=== PATIENT | female | born 2000 | race Caucasian/White ===

== ENCOUNTER 2020-04-14 12:20 | Emergency (ER) | payer OTHER, SELFPAY ==
[2020-04-14 12:20] VITALS: BP 140/72; PULSE 83; RESP 16; TEMP 37; O2SAT 100
[2020-04-14 12:56] LABS: Add Urine Microscopic? NO; Appearance Urine Clear (Clear); Bilirubin Urine Negative (Negative); Blood Urine Negative (Negative); Color Urine Yellow (Yellow); Glucose Urine UA Negative (Negative); Ketones Urine Negative (Negative); Leukocyte Esterase Ur Negative (Negative); Nitrate Urine Negative (Negative); Protein Urine Negative (Negative); Urobilinogen Urine 0.2 mg/dL (0.2-1.0)
[2020-04-14 12:59] LABS: Pregnancy On Board Control Positive; Urine Pregnancy Test Negative
--- NOTE | 2020-04-14 13:05 | ED.FEMALEGU ---
HPI - Female Genitourinary General Chief complaint: OB/Uterine Contractions Stated complaint: symptoms Time Seen by Provider: 04/14/20 12:50 Source: patient Mode of arrival: ambulatory Limitations: no limitations History of Present Illness HPI Narrative: Patient comes in stating she had cramps and some spotting on Monday. She did a home test, and this was positive. She comes in wanting to have a test. She states she had similar symptoms when she was the last time. She is worried she is again. Her symptoms were mild and only lasted for a little while, an hour or so on Monday. Spotting was on Monday. Cramping was in low abdomen in the middle in the area above her bladder and was mild in nature. Nothing seemed to precipitate these symptoms. She has had no symptoms other than these. And she has had no return of these symptoms since Monday. She has not taken any medicines. MD elicited complaint: other (denies dysuria, frequency, urgency. She denies any vaginal discharge, or discomfort. ) Sexual activity: Yes (no new partners, she does not know when her last menstral period was.) Patient : No Related Data Home Medications Medication Instructions Recorded Confirmed escitalopram oxalate 20 mg PO DAILY 04/14/20 04/14/20 levonorgestrel-ethinyl estrad 1 tablet PO DAILY 04/14/20 04/14/20 [Aviane] Allergies Allergy/AdvReac Type Severity Reaction Status Date / Time ceftriaxone [From Rocephin] Allergy Unknown Verified 04/14/20 12:52 montelukast [From Singulair] Allergy Unknown Verified 04/14/20 12:52 Review of Systems Constitutional: Constitutional: Reports as per HPI Eyes: Eyes: Reports no additional eye complaints ENT: Reports system reviewed and no additional complaints, except as documented Cardiovascular: Cardiovascular: Reports no additional cardiovascular complaints Respiratory: Respiratory: Reports no additional respiratory complaints Gastrointestinal: Gastrointestinal: Reports no additional gastrointestinal complaints Comments: no loose stools Genitourinary: Genitourinary: Reports no additional female genitourinary complaints Comments: denies any discomfort or vaginal discharge Musculoskeletal: Musculoskeletal: Reports no additional musculoskeletal complaints Integumentary/Breasts: Skin/Breast: Reports system reviewed and no additional complaints, except as docu Neurologic: Reports system reviewed and no additional complaints, except as documented Psychiatric: Psychiatric: Reports no additional psychiatric complaints Endocrine: Endocrine: Reports no additional endocrine complaints Hematologic/Lymphatic: Hematologic/Lymphatic: Reports no additional hematologic/lymphatic complaints Allergic/Immunologic: Allergic/Immunologic: Reports no additional allergic/immunologic complaints [facility] Past Medical History Medical History Anxiety Depression Surgical History Surgical History No significant past surgical history Family History Family History Mother No problems noted. Father Diabetes mellitus Social History Social History Smoking status: Current some day smoker Tobacco type: cigarettes Additional smoking assessment comments: smokes at times Alcohol use details: has alcohol at times Exam Const: General: no acute distress HENMT: Head: normal to inspection Face and sinus: normal facial exam Eyes: Conjunctivae: conjunctivae normal Chest: Chest palpation & inspection: normal inspection of the chest Resp: Effort & Inspection: normal respiratory effort Auscultation: clear to auscultation bilaterally Cardio: Rate: regular rate Rhythm: regular rhythm GI: GI Palp: Yes Soft to palpation Auscultation: normal bowel soun
[2020-04-14 13:14] VITALS: PULSE 80; RESP 18; O2SAT 100
== END 2020-04-14 13:16 | disposition home or self-care (01) ==
PROVIDERS: Emergency Provider Emergency Medicine; PCP Family Medicine
DX: N92.0 Excessive and frequent menstruation with regular cycle (principal)
CPT/HCPCS: 81003; 81025; 99282; 99283

== ENCOUNTER 2020-06-04 11:34 | Emergency (ER) | payer OTHER, SELFPAY ==
--- NOTE | ~2020-06-04 | US_ITS ---
EXAMINATION: US OB transvaginal EXAM DATE: 06/04/2020 12:46 INDICATION: Pelvic pain. . 1st trimester. TECHNIQUE: Pelvic obstetrical transabdominal sonogram was performed by a technologist. There are mu ltiple grayscale and Doppler images available for interpretation. There are no earlier studies of th is gestation for comparison. FINDINGS: Uterus measures 7.7 x 5.6 x 7.3 cm. There is intrauterine gestation sac. pole with heart rate confirmed at 130 beats per minute. The 8 mm crown-rump length corresponds to estimated ge stational age by ultrasound of 6 weeks 5 days. Yolk sac is identified. There is small subchorionic hemorrhage measuring 8 x 14 x 18 mm. Ovaries are morphologically normal with the corpus luteal cyst likely in the left ovary. IMPRESSION: Live intrauterine gestation with small subchorionic hemorrhage. Reviewed, dictated and finalized at location B. LOAD TRUCK DRIVER
[2020-06-04 12:03] LABS: Add Urine Microscopic? YES; Appearance Urine Clear (Clear); Bilirubin Urine 1+ (Negative); Blood Urine Negative (Negative); Color Urine Amber (Yellow); Glucose Urine UA Negative (Negative); Ketones Urine Trace (Negative); Leukocyte Esterase Ur Negative (Negative); Nitrate Urine Negative (Negative); Protein Urine Trace (Negative); Specific Grav Ur >= 1.030 (1.010-1.020)
[2020-06-04 12:03] LABS: Basophils Absolute Auto 0.05 K/mm3 (0.00-0.10); Eosinophils Absolute Auto 0.17 K/mm3 (0.02-0.50); Eosinophils Percent Auto 3.3 % (1.0-6.0); Hematocrit 38.2 % (35.0-49.0); Hemoglobin 13.2 g/dL (12.0-15.0); Immature Granulocyte Absolute 0.01 K/mm3 (0.00-0.00); Immature Granulocyte Percent A 0.2 % (0.0-0.0); Lymphocytes Absolute Auto 1.46 K/mm3 (1.10-4.50); Lymphocytes Percent Auto 27.9 % (18.0-42.0); Mean Corpuscular HGB Conc 34.6 g/dL (32.0-36.0); Mean Corpuscular Hemoglobin 29.8 pg (27.0-31.0); Mean Corpuscular Volume 86.2 fL (78.0-102.0); Mean Platelet Volume 11.4 fl (9.2-11.8); Monocytes Absolute Auto 0.41 K/mm3 (0.10-0.90); Monocytes Percent Auto 7.8 % (2.0-11.0); Neutrophils Absolute Auto 3.1 K/mm3 (1.7-7.2); Neutrophils Percent Auto 59.8 % (50.0-70.0); Platelet Count Result 246 K/mm3 (150-420); Red Blood Count 4.43 M/mm3 (4.20-5.40); Red Cell Distribution Width 12.3 % (11.6-14.4); White Blood Count 5.2 K/mm3 (4.8-10.8)
[2020-06-04 12:10] VITALS: BP 123/77; PULSE 76; RESP 16; TEMP 36.5; O2SAT 99
[2020-06-04 12:19] LABS: Bacteria Urine 4+ /hpf; Mucus Urine Moderate /lpf; RBC Urine 0-2 /hpf (0-2); Squamous Epithelial Cell Urine Few /hpf (Few); WBC Urine 0-3 /hpf (0-3)
[2020-06-04 12:23] LABS: INR 0.9; Partial Thromboplastin Time 26.3 SEC (23.90-30.70); Prothrombin Time 10.3 Seconds (9.50-12.10)
[2020-06-04 12:26] LABS: Anion Gap 10 mmol/L (8-16); Aspartate Amino Transferase 13 U/L (15-37); Bilirubin,Total 0.5 mg/dL (0.00-1.00); Blood Urea Nitrogen 8 mg/dL (7-18); Calcium 8.9 mg/dL (8.5-10.1); Carbon Dioxide 23 mmol/L (21-32); Chloride 103 mmol/L (98-108); Estimated Glomerular Filt Rate > 60; Glucose 86 mg/dL (70-99); Osmolality Calculated 279 mOsm/kg (285-295); Potassium 3.4 mmol/L (3.5-5.1); Sodium 136 mmol/L (136-145)
[2020-06-04 12:27] LABS: Alanine Aminotransferase 11 U/L (14-59); Albumin Level 3.8 g/dL (3.4-5.0); Alkaline Phosphatase 61 U/L (46-116); Total Protein 7.3 g/dL (6.4-8.2)
--- NOTE | 2020-06-04 13:08 | ED.GENADULT ---
HPI - General Adult General Chief complaint: Fall Stated complaint: fell down stairs Source: patient Mode of arrival: ambulatory Limitations: no limitations History of Present Illness HPI narrative: this is a 19-year-old patient with a fall that occurred earlier today down flight of stairs moves all her extremities upper and lower extremities with no head injury no neck pain or stiffness no hematomas the patient was concerned that she had some mild bleeding from the vaginal area and some abdominal discomfort. The patient abdomen is nontender with no nausea vomiting no shortness of breath. Onset (ago): hour(s) Location: pelvis Radiation: abdomen Severity: mild Severity scale (1-10): 2 Quality: dull Pain Consistency: now resolved Relieving factors: none Exacerbating factors: none Associated symptoms: denies other symptoms Related Data Home Medications Medication Instructions Recorded Confirmed escitalopram oxalate 20 mg PO DAILY 04/14/20 04/14/20 levonorgestrel-ethinyl estrad 1 tablet PO DAILY 04/14/20 04/14/20 [Aviane] Allergies Allergy/AdvReac Type Severity Reaction Status Date / Time ceftriaxone [From Rocephin] Allergy Unknown Verified 04/14/20 12:52 montelukast [From Singulair] Allergy Unknown Verified 04/14/20 12:52 Review of Systems Review of Systems: All systems reviewed & are unremarkable except as noted in HPI and below PMFSH Past Medical History Medical History Anxiety Depression Surgical History Surgical History No significant past surgical history Family History Family History Mother No problems noted. Father Diabetes mellitus Social History Social History Smoking status: Current some day smoker Tobacco type: cigarettes Additional smoking assessment comments: smokes at times Exam Const: General: no acute distress and alert Orientation/consciousness: patient oriented x3 HENMT: Head: normal to inspection Eyes: Conjunctivae: conjunctivae normal Pupils: Equal, round and reactive pupils present EOM: EOMs intact bilaterally Neck: Neck: normal visual inspection, no lymphadenopathy and no meningeal signs Chest: Chest palpation & inspection: normal inspection of the chest Resp: Effort & Inspection: normal respiratory effort Auscultation: clear to auscultation bilaterally Cardio: Rate: regular rate Rhythm: regular rhythm GI: GI Palp: Yes Soft to palpation Percussion: Yes normal to percussion Auscultation: normal bowel sounds : General: Yes no CVA tenderness Urinary Catheter: Urinary Catheter: patent and draining Skin: General skin exam: normal color Rashes: no rashes Neuro: General: patient oriented x3, moves all extremities, no meningeal signs and no focal motor deficits Extrem: General: normal to inspection and no pedal edema Psych: Mental Status: mental status grossly normal Course Course Emergency Course: Reassessment of patient currently no vaginal bleeding abdomen is soft and currently nontender reviewed ultrasound and lab work with patient and told patient that she is 6 weeks and 5 days with some heart rate of 130, with a small subchorionic hematoma. The patient does have a OB follow-up in the morning and advised her to keep that follow-up or return to our ER if symptoms persist or worsen. Medical Decision Making Lab Data Result diagrams: 06/04/20 11:58 06/04/20 11:58 Labs: Lab Results 06/04/20 06/04/20 06/04/20 Range/Units 11:48 11:48 11:58 WBC (4.8-10.8) K/mm3 RBC (4.20-5.40) M/mm3 Hgb (12.0-15.0) g/dL Hct (35.0-49.0) % MCV (78.0-102.0) fL MCH (27.0-31.0) pg MCHC (32.0-36.0) g/dL RDW (11.6-14.4) % Plt Count (150-420)
[2020-06-04 13:19] VITALS: RESP 16
== END 2020-06-04 13:30 | disposition home or self-care (01) ==
PROVIDERS: Emergency Provider Emergency Medicine; PCP Family Medicine
DX: Z34.91 Encounter for supervision of normal pregnancy, unspecified, first trimester (principal); W19.XXXA Unspecified fall, initial encounter
CPT/HCPCS: 36415; 76817; 80053; 81001; 84702; 85025; 85610; 85730; 99282; 99284

== ENCOUNTER 2020-08-18 14:57 | Observation (INO) | payer OTHER, SELFPAY ==
[2020-08-18 15:13] VITALS: BP 116/70; PULSE 82
--- NOTE | 2020-08-18 15:30 | PC.NURSE ---
Pt presented to unit due to fall that occurred on 08/16/20. She states that she slipped in mud and left on her left flank, hip, and arm. On 08/17 pt reports that she presented to [facility] [place] where the RN states that she couldn't find a FHR and the doctor placed the doppler on rt side of pt umbilicus for a quick second and reported that he heard an FHR of 175bpm - pt states that she didn't hear a FHR at that time. Pt called office this morning and was told to come to the unit to be monitored. At this time, pt was doppled - 155bpm. Pt reports mild cramping 4/10 pain and no bloody discharge. Has been taking tylenol for cramping. Will continue to monitor.
[2020-08-18 15:43] VITALS: BMI 26.7
--- NOTE | 2020-08-18 16:05 | PC.NURSE ---
Dr Jerome returned call for pt orders. Pt ok to d/c home.
--- NOTE | 2020-08-18 16:22 | PC.NURSE ---
Pt given d/c instructions - verbalized understand. D/c ambulatory with self, with cramping pain 2/10, denies vaginal bleeding.
--- NOTE | 2020-08-20 08:06 | PM.OBTRLD ---
OB - Triage/Final Diagnosis Visit Information Comments/Additional reasons for admission: I have assessed the risk for this patient, Mae López, and determined that she would benefit from observation care. Final Diagnosis (1) Fall: Code(s): W19.XXXA - Unspecified fall, initial encounter Status: Acute
== END 2020-08-18 16:20 | disposition home or self-care (01) ==
PROVIDERS: Admitting Provider Obstetrics & Gynecology; PCP Family Medicine; Visit Provider Obstetrics & Gynecology
DX: Z04.3 Encounter for examination and observation following other accident (principal); O26.90 Pregnancy related conditions, unspecified, unspecified trimester; W19.XXXA Unspecified fall, initial encounter; Z3A.00 Weeks of gestation of pregnancy not specified
CPT/HCPCS: G0378; G0379

== ENCOUNTER 2020-09-29 09:33 | Observation (INO) | payer OTHER, SELFPAY ==
--- NOTE | 2020-09-29 09:33 | OBADM ---
This patient, Mae López, admitted to the OB room OB Post 116 for observation. Patient/family oriented to hospital policies and general routines including ID bracelet, bed and alarms, visiting hours, pain management, procedures, bathroom and other care routines, personal items, smoking policy, room service/diet, and visiting hours. Patient/Family are encouraged to report perceived risks to care and to ask questions if they do not understand what they are told or what they should do.
[2020-09-29 09:54] VITALS: BP 106/60; PULSE 76
[2020-09-29 10:00] VITALS: BP 104/60; PULSE 80
[2020-09-29 10:18] VITALS: BMI 27.2
[2020-09-29 10:27] LABS: Add Urine Microscopic? YES; Amorphous Sediment Urine Few; Appearance Urine Cloudy (Clear); Bacteria Urine 2+ /hpf; Bilirubin Urine Negative (Negative); Blood Urine Negative (Negative); Color Urine Amber (Yellow); Glucose Urine UA Negative (Negative); Ketones Urine Negative (Negative); Leukocyte Esterase Ur Trace LEU/UL (NEGATIVE); Mucus Urine Heavy /lpf; Nitrate Urine Negative (Negative); Protein Urine 2+ mg/dL (Negative); Specific Grav Ur 1.026 (1.001-1.035); Squamous Epithelial Cell Urine Few /hpf (Few)
[2020-09-29 10:30] VITALS: BP 82/54; PULSE 69
--- NOTE | 2020-10-01 16:24 | PM.OBTRLD ---
OB - Triage/Final Diagnosis Visit Information Comments/Additional reasons for admission: I have assessed the risk for this patient, Mae López, and determined that she would benefit from observation care. Evaluation Laboratory results: Laboratory Tests 09/29/20 10:11 Urine Color [place] Urine Appearance Cloudy H Urine pH 6.0 Ur Specific [place] 1.026 Urine Protein 2+ H Urine Glucose (UA) Negative Urine Ketones Negative Ur Blood (Man) Negative Urine Nitrate Negative Urine Bilirubin Negative Urine Urobilinogen 4.0 H Ur Leukocyte Esterase Trace H Urine RBC 3-5 H Urine WBC 4-6 H Ur Squamous Epith Cells Few Amorphous Sediment Few H Urine Bacteria 2+ H Urine Mucus Heavy H Final Diagnosis (1) Abdominal pain affecting : Code(s): O26.899 - Other specified related conditions, unspecified trimester; R10.9 - Unspecified abdominal pain Status: Acute
== END 2020-09-29 11:30 | disposition home or self-care (01) ==
PROVIDERS: Admitting Provider Obstetrics & Gynecology; PCP Family Medicine; Visit Provider Obstetrics & Gynecology
DX: O26.899 Other specified pregnancy related conditions, unspecified trimester (principal); R10.9 Unspecified abdominal pain; Z3A.00 Weeks of gestation of pregnancy not specified
CPT/HCPCS: 81001; 87086; 87088; G0378; G0379

== ENCOUNTER 2021-01-16 06:18 | Inpatient (IN) | payer OTHER, SELFPAY ==
[2021-01-16] VITALS (55 sets, daily range): BP systolic 100–132; BP diastolic 58–98; PULSE 55–152; RESP 16–18; TEMP 35.8–36.4; O2SAT 80–100; BMI 30.4
[2021-01-16] MEDS: LACTATED RINGERS 1,000 ML 125 ML IV CONT ×2 (07:16→08:04)
[2021-01-16] MEDS: ONDANSETRON INJ 4 MG/2 ML VIAL IV PUSH (07:16)
[2021-01-16] MEDS: OXYTOCIN 30 UNITS/NS 500 ML 30 UNITS/500 ML BAG IV CONT (07:17)
[2021-01-16 07:25] LABS: Basophils Percent Auto 0.6 % (0.2-1.2); Eosinophils Absolute Auto 0.1 K/mm3 (0-0.3); Eosinophils Percent Auto 1.2 % (0-4.4); Hemoglobin 10.6 g/dL (12.0-15.0); Immature Granulocyte Absolute 0.02 K/mm3 (0.00-0.031); Immature Granulocyte Percent A 0.3 % (0-0.5); Lymphocytes Absolute Auto 2.04 K/mm3 (0.9-3.2); Mean Corpuscular HGB Conc 32.1 g/dl (32-36); Mean Corpuscular Hemoglobin 26.4 pg (26-34); Mean Corpuscular Volume 82.3 fl (80-100); Mean Platelet Volume 11.4 fl (7.4-10.4); Monocytes Absolute Auto 0.6 K/mm3 (0.1-0.6); Monocytes Percent Auto 8.3 % (2.6-8.5); Neutrophils Absolute Auto 3.9 K/mm3 (1.3-6.7); Neutrophils Percent Auto 58.6 % (45.5-73.1); Platelet Count Result 245 k/mm3 (150-375); Red Blood Count 4.01 M/mm3 (4.2-5.4); Red Cell Distribution Width 13.4 % (11.5-14.5); White Blood Count 6.6 K/mm3 (4.5-10.0)
--- NOTE | 2021-01-16 10:35 | WPDHPUPDATE1 ---
History and Physical Update Update Date/Time: 01/16/21 10:35 History and Physical has been reviewed, including an updated exam of the patient. There are NO changes in the patient's condition. Risks, benefits, and alternatives have been discussed and questions answered. Patient agrees to proceed with procedure.
--- NOTE | 2021-01-16 10:35 | WPDOBADMIT ---
Obstetrics - Admit Note Admission Note: record reviewed. No pertinent additions to the history and/or any subsequent changes in the physical findings that are not consistent with the expected course of the were found. Additions to the history and/or subsequent changes in the physical findings follow. None.
--- NOTE | 2021-01-16 10:35 | PM.OBPRVD ---
OB - Delivery Note Procedure Route of delivery: Episiotomy description: None Laceration Description: Vaginal - 2nd Degree Delivery repair: chromic Specimen: No Quantitative Blood Loss (ml): 400 Anesthesia type: Epidural Disposition: floor Narrative: Patient prepped and draped in usual manner for this procedure. Maternal expulsive efforts readily delivered vertex followed by the rest of baby with a nuchal cord reduced prior to delivery of the baby's body. Cord was clamped and cut placenta delivered spontaneously. Uterus was well contracted. Cervix vagina vulva were inspected second-degree laceration was noted and repaired using 2 0 chromic to approximate the vaginal tissue deep tissue and a subcuticular layer to approximate skin edges. Again uterus was well contracted no significant bleeding at this point seizure was considered terminated with immediate postoperative condition mother baby both excellent. [place] Baby Weeks of gestation at delivery: 39 gender: Male Weight (pounds): 8 Weight (ounces): 5 score one minute: 8 score five minutes: 9
[2021-01-16] MEDS: OXYTOCIN 30 UNITS/NS 500 ML 30 UNITS/500 ML BAG 125 UNITS IV CONT (10:41)
[2021-01-16] MEDS: WITCH HAZEL 40 PADS 1 PAD TOPICAL (12:39)
[2021-01-16] MEDS: BENZOCAINE 20% AER SPR (*SP) 56 GM CAN 1 SPRAY TOPICAL (12:39)
--- NOTE | 2021-01-16 13:03 | PC.NURSE ---
Patient transferred to post room #285 per wheelchair from labor and delivery. Support person present. Oriented to unit, room, information board, rooming in, admission packet and security measures. Patient verbalizes understanding.
[2021-01-16] MEDS: IBUPROFEN 600 MG TABLET PO (23:53)
[2021-01-17 04:00] VITALS: BP 99/56; PULSE 50; RESP 16; TEMP 36.1; O2SAT 99
[2021-01-17 04:13] LABS: Hematocrit 24.2 % (37.0-47.0); Hemoglobin 7.8 g/dL (12.0-15.0)
--- NOTE | 2021-01-17 07:53 | WPDANLDPN2 ---
Anes-Prog Note L&D Date/Time: 01/17/21 07:53 Comfortable throughout: labor and delivery Neuraxial method: epidural Epidural/Spinal procedure site: clean & non-tender Neuro status: Neuro function grossly intact. Cardiovascular status: normal Respiratory status: normal Airway patency: baseline Mental status: baseline Post-Op hydration status: normal Vital Signs: Last Vital Signs Temp 97.0 F L 01/17/21 04:00 Pulse 50 L 01/17/21 04:00 Resp 16 01/17/21 04:00 BP 99/56 L 01/17/21 04:00 Pulse Ox 99 01/17/21 04:00 Pain score (VAS): 2 I/O: Intake & Output 01/16/21 01/16/21 01/17/21 15:59 23:59 07:59 Intake Total 1500 Output Total 675 Balance 825 Post-procedural complaints: none Patient feedback: Patient satisfied with anesthetic care.
[2021-01-17 08:10] VITALS: BP 94/59; PULSE 59; RESP 16; TEMP 36.3
[2021-01-17] MEDS: POLYSACCHARIDE IRON COMPLEX 150 MG CAPSULE PO (08:10)
[2021-01-17] MEDS: DOCUSATE SODIUM 100 MG CAPSULE PO (08:10)
[2021-01-17] MEDS: MULTIVIT/MIN/PREN/FOL AC/IRON TABLET 1 TAB PO (08:10)
--- NOTE | 2021-01-17 08:10 | PC.NURSE ---
Patient encouraged to viewed the discharge video Mother & Baby Care, The First Two Weeks . Patient was given the opportunity and encouraged to ask questions. Patient verbalized understanding of information shared and has been given the mother/baby guide for home reference.
--- NOTE | 2021-01-17 10:07 | PM.OBDSVD ---
DS: Admitting Diagnosis Admitting Diagnosis OB - DS: Summary OB Procedures : None OB Procedures Intrapartum: Spontaneous Vag Delivery OB Procedures: : None Time Spent with Patient Time attestation: Total time spent providing and/or coordinating discharge services: DS: Data Data Completed and Pending Labs on day of discharge: Labs from last 24 hours 01/17/21 04:06 Hgb 7.8 L Hct 24.2 L Discharge Plan Discharge Discharging Clinician: Toby Perkins Patient Disposition: Home, Self-Care Activity: as tolerated Diet: as tolerated Patient Instructions: Antibiotic Form Stand Alone Forms: General Discharge Information Follow-up/Referrals: Toby Perkins MD [Physician] - 3 Weeks Discharge Medications: New ibuprofen 600 mg Tablet 600 mg PO Q6H PRN (Reason: Cramping) Qty: 30 RF: 0 Continued acetaminophen [Tylenol] 325 mg Tablet 325 mg PO ONCE PRN (Reason: Cramps) RF: 0 iron-vitamin B complex Tablet 1 tablet PO DAILY RF: 0 Classic 28 mg iron- 800 mcg Tablet 1 tablet DAILY RF: 0 Date of admission: 01/16/21 06:18 Primary Care Provider: Lei,Evelio Admitting Provider: Toby Perkins Attending physician on admission: Toby Perkins Condition: Stable
[2021-01-17] MEDS: MEASLES,MUMPS,RUBELLA VACCINE 0.5 ML VIAL SUB-Q (13:43)
[2021-01-18 09:57] LABS: Rapid Plasma Reagin Non-Reactive (NonReactive)
== END 2021-01-17 14:05 | disposition home or self-care (01) | DRG 560 ==
LOC: ANHLDR 06:23 → ANHOB2 13:06
PROVIDERS: Admitting Provider Obstetrics & Gynecology; PCP Family Medicine; Visit Provider Obstetrics & Gynecology
DX: O69.81X0 Labor and delivery complicated by cord around neck, without compression, not applicable or unspecified (principal); Z37.0 Single live birth; Z3A.39 39 weeks gestation of pregnancy; O70.1 Second degree perineal laceration during delivery
CPT/HCPCS: 36415; 85014; 85018; 85025; 86592; 86850; 86900; 86901; 90710; A9270; J2405; J2590; J2795; J7120

== ENCOUNTER 2021-07-12 14:29 | Outpatient (CLI) | payer OTHER, SELFPAY ==
--- NOTE | ~2021-07-12 | US_ITS ---
US abdomen limited INDICATION: Abdominal pain PROCEDURE: Realtime right upper abdominal ultrasound. COMPARISON: No prior studies for comparison. FINDINGS: The pancreas is normal without focal mass or pancreatic ductal dilation. Liver echotexture is normal without focal mass or intrahepatic biliary dilatation. There is normal directional flow i n the portal vein. Gallbladder is contracted limiting evaluation for stones or gallbladder wall thickening. Common bile duct measures 3 mm. No sonographic Rose's sign. IMPRESSION: 1: Normal limited abdominal ultrasound. Limited evaluation of the gallbladder due to contraction. Reviewed, dictated and finalized at location B. HING MACHINE OPERATOR IMPRESSION: 1: Normal limited abdominal ultrasound. Limited evaluation of the gallbladder d ue to contraction.
[2021-07-12 15:18] LABS: Alanine Aminotransferase 23 U/L (14-59); Alkaline Phosphatase 86 U/L (46-116); Anion Gap 8 mmol/L (8-16); Aspartate Amino Transferase 12 U/L (15-37); Bilirubin,Total 0.4 mg/dL (0.00-1.00); Blood Urea Nitrogen 12 mg/dL (7-18); Calcium 9.2 mg/dL (8.5-10.1); Carbon Dioxide 27 mmol/L (21-32); Chloride 102 mmol/L (98-108); Estimated Glomerular Filt Rate > 60; Glucose 91 mg/dL (70-99); Osmolality Calculated 283 mOsm/kg (285-295); Potassium 4.7 mmol/L (3.5-5.1); Sodium 137 mmol/L (136-145); Total Protein 7.3 g/dL (6.4-8.2)
[2021-07-12 15:42] LABS: Thyroid Stimulating Hormone Reflex 3.21 u/IU/mL (0.36-3.74)
== END 2021-07-12 14:30 | disposition home or self-care (01) ==
LOC: CHSLAB 14:31
PROVIDERS: PCP Family Medicine; Visit Provider Family Medicine
DX: R10.9 Unspecified abdominal pain (principal); E11.9 Type 2 diabetes mellitus without complications
CPT/HCPCS: 36415; 76705; 80053; 84443

== ENCOUNTER 2022-04-25 12:19 | Emergency (ER) | payer OTHER, SELFPAY ==
--- NOTE | 2022-04-25 12:29 | ED.NECK ---
HPI - Neck Pain/Injury General Chief Complaint: Back Pain/Injury Stated Complaint: pain starts at neck goes all the way down back Time Seen by Provider: 04/25/22 12:21 Source: patient and RN notes reviewed Mode of arrival: ambulatory Limitations: no limitations History of Present Illness HPI Narrative: Patient states that she woke up Monday morning having neck and back pain. She says that her 5-year-old daughter has had a cough cold recently and then she began having cough yesterday. She states her neck and back is just achy all over. She denies any fever chills. She denies any headache, or nausea. complaint: neck pain Onset (ago): day(s) (2) Place: home Radiation: upper back Severity: severe Quality: dull and aching Duration: constant and progressively worsening Relieving factors: none Exacerbating factors: movement of neck Context: unknown Associated symptoms: other (cough) Treatments prior to arrival: none Related Data Allergies Allergy/AdvReac Type Severity Reaction Status Date / Time ceftriaxone [From Rocephin] Allergy Unknown Verified 04/25/22 12:48 montelukast [From Singulair] Allergy Unknown Verified 04/25/22 12:48 Review of Systems Review of Systems: All systems reviewed & are unremarkable except as noted in HPI and below PMFSH Past Medical History Medical History (Updated 04/25/22 @ 13:27 by Kip Schultz MD) Anxiety Depression Encounter for IUD insertion 03/23/19 Mirena insertion Encounter for IUD removal 03/25/20 Mirena removal Vaginal delivery 08/23/17 Dariusz no complications 01/16/21 Keyshawn no complications Surgical History Surgical History No significant past surgical history Family History Family History Mother No problems noted. Father Diabetes mellitus Social History Social History Smoking status: Never smoker Second hand tobacco smoke exposure: Yes Additional smoking assessment comments: smokes at times Alcohol use details: has alcohol at times Substance use: never Gender identity (if verbalized by the patient): Female Sexual Orientation (if Verbalized by the Patient): Straight or Heterosexual Spiritual care concerns: No Exam Const: General: healthy appearing, no acute distress and alert Nutritional Appearance: well nourished and thin Orientation/consciousness: patient oriented x3 Limitations: no limitations Other: female nurse in room during examination. HENMT: Head: normal to inspection Ears: external ears normal Eyes: Conjunctivae: conjunctivae normal Pupils: Equal, round and reactive pupils present EOM: EOMs intact bilaterally Neck: Neck: normal visual inspection and no lymphadenopathy Resp: Effort & Inspection: normal respiratory effort Auscultation: clear to auscultation bilaterally Cardio: Rate: regular rate Rhythm: regular rhythm GI: GI Palp: Yes Soft to palpation and No Tenderness to palpation present (GI) Auscultation: normal bowel sounds Back/Spine/Pelvis: Cervical Spine: cervical ROM normal Thoracic/Lumbar Spine: thoraco-lumbar ROM normal Skin: General skin exam: normal color Rashes: no rashes Neuro: General: patient oriented x3, moves all extremities and CN's II-XI intact bilaterally Speech: normal speech Gait exam (Neuro): Normal gait present Extrem: General: normal to inspection and no clubbing, cyanosis or edema Psych: Mental Status: mental status grossly normal Affect: normal affect Attitude: cooperative MDM - Neck Pain/Injury MDM Narrative Medical decision making narrative: I considered neck strain with radiation down to the back. However with her symptoms of just aching in her back muscles and a slight cough I investigated for possibility of influenza versus COVID. She tested positive for influenza A. Discharge Plan Discharge Clin
--- NOTE | 2022-04-25 12:35 | PC.NURSE ---
This RN assisted Dr. Schultz during pt's assessment.
[2022-04-25 12:36] VITALS: BP 138/98; PULSE 120; RESP 18; TEMP 36.9; O2SAT 96
--- NOTE | 2022-04-25 12:54 | PC.NURSE ---
Pt had a cough during assessment, states her children at home are ill at this time.
[2022-04-25 13:16] LABS: Influenza A QL RT-PCR Positive (Negative); Influenza B QL RT-PCR Negative (Negative); SARS-CoV-2 RNA PCR Negative (Negative)
[2022-04-25 13:35] VITALS: BP 131/93; PULSE 95; RESP 18; TEMP 37.7; O2SAT 97
== END 2022-04-25 13:39 | disposition home or self-care (01) ==
PROVIDERS: Emergency Provider Emergency Medicine; PCP Nurse Practitioner Family
DX: J11.1 Influenza due to unidentified influenza virus with other respiratory manifestations (principal); Z20.822 Contact with and (suspected) exposure to COVID-19
CPT/HCPCS: 87636; 99283

== ENCOUNTER 2022-08-04 13:42 | Outpatient (CLI) | payer OTHER, SELFPAY ==
[2022-08-04 13:54] LABS: Hematocrit 37.7 % (35.0-49.0); Hemoglobin 12.8 g/dL (12.0-15.0); Mean Corpuscular Hemoglobin 29.4 pg (27.0-31.0); Mean Corpuscular Volume 86.5 fL (78.0-102.0); Mean Platelet Volume 10.8 fl (9.2-11.8); Platelet Count Result 233 K/mm3 (150-420); Red Blood Count 4.36 M/mm3 (4.20-5.40); Red Cell Distribution Width 12.9 % (11.6-14.4); White Blood Count 3.7 K/mm3 (4.8-10.8)
[2022-08-04 14:39] LABS: Band Neutrophils Percent 3 % (0-6); Basophils Absolute Manual 0.07 K/mm3 (0-0.1); Basophils Percent Manual 2 % (0-1); Eosinophils Absolute Manual 0.11 K/mm3 (0.02-0.5); Eosinophils Percent Manual 3 % (1-6); Lymphocytes Absolute Manual 1.44 K/mm3 (1.1-4.5); Lymphocytes Percent Manual 39 % (18-44); Monocytes Absolute Manual 0.25 K/mm3 (0.1-0.90); Monocytes Percent Manual 7 % (3-9); Neutrophils Absolute Manual 1.81 K/mm3 (1.7-7.2); Neutrophils Percent Manual 46 % (46-73); Total Cells Counted 100
[2022-08-04 14:40] LABS: Alanine Aminotransferase 14 U/L (14-59); Albumin Level 4.2 g/dL (3.4-5.0); Alkaline Phosphatase 51 U/L (46-116); Anion Gap 10 mmol/L (8-16); Aspartate Amino Transferase 12 U/L (15-37); Bilirubin,Total 0.4 mg/dL (0.00-1.00); Blood Urea Nitrogen 11 mg/dL (7-18); Calcium 9.1 mg/dL (8.5-10.1); Carbon Dioxide 27 mmol/L (21-32); Chloride 103 mmol/L (98-108); Estimated Glomerular Filt Rate > 60; Free T4 Free Thyroxine 0.96 ng/dL (0.76-1.46); Glucose 79 mg/dL (70-99); Osmolality Calculated 288 mOsm/kg (285-295); Potassium 3.9 mmol/L (3.5-5.1); Sodium 140 mmol/L (136-145); Thyroid Stimulating Hormone 1.61 uIU/mL (0.36-3.74); Total Protein 7.2 g/dL (6.4-8.2)
[2022-08-04 15:06] LABS: Platelet Estimate Adequate (Adequate)
== END 2022-08-04 13:43 | disposition home or self-care (01) ==
LOC: CHSLAB 13:43
PROVIDERS: PCP Family Medicine; Visit Provider Nurse Practitioner Family
DX: R63.4 Abnormal weight loss (principal)
CPT/HCPCS: 36415; 80053; 84439; 84443; 85025

== ENCOUNTER 2022-08-09 14:14 | Emergency (ER) | payer OTHER, SELFPAY ==
[2022-08-09 14:15] VITALS: BP 119/68; PULSE 78; RESP 18; TEMP 36.7; O2SAT 100
--- NOTE | 2022-08-09 15:22 | PC.NURSE ---
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 IV SITE DC PRIOR TO PT LEAVING. ERP IS AWARE, HE HAD NOT EVALUATED PT PRIOR TO PT LEAVING. PT LWBS.
== END 2022-08-09 15:20 | disposition left against medical advice (07) ==
PROVIDERS: Emergency Provider Emergency Medicine; PCP Family Medicine
DX: R11.2 Nausea with vomiting, unspecified (principal)
CPT/HCPCS: 99199

== ENCOUNTER 2023-02-09 13:00 | Outpatient (CLI) | payer OTHER, SELFPAY ==
[2023-02-09 14:40] LABS: Hematocrit 30.9 % (37.0-47.0); Mean Corpuscular HGB Conc 32.4 g/dl (32-36); Mean Corpuscular Hemoglobin 28.8 pg (26-34); Mean Platelet Volume 11.2 fl (7.4-10.4); Platelet Count Result 211 k/mm3 (150-375); Red Blood Count 3.47 M/mm3 (4.2-5.4); Red Cell Distribution Width 13.2 % (11.5-14.5); White Blood Count 5.9 K/mm3 (4.5-10.0)
[2023-02-09 14:57] LABS: Glucose 1 Hour PP 50gm Dose 104 mg/dL
[2023-02-09 15:33] LABS: HIV 1/2 Ab P24 Ag Result Negative (Negative)
[2023-02-13 09:30] LABS: CMV IgG Antibody <0.60 U/mL (<0.60)
== END 2023-02-09 13:01 | disposition home or self-care (01) ==
LOC: ANHLAB 13:01
PROVIDERS: PCP Nurse Practitioner Family; Visit Provider Student in an Organized Health Care Education/Training Program
DX: Z34.90 Encounter for supervision of normal pregnancy, unspecified, unspecified trimester (principal); Z3A.00 Weeks of gestation of pregnancy not specified
CPT/HCPCS: 36415; 82947; 85027; 86644; 86703; 86747; G0432

== ENCOUNTER 2023-03-06 10:22 | Outpatient (CLI) | payer OTHER, SELFPAY ==
--- NOTE | ~2023-03-06 | US_ITS ---
US OB follow up DATE: 03/06/2023 12:36 INDICATION: Hypertension. Evaluate KAMALA and estimated weight TECHNIQUE: Real-time and Doppler analysis COMPARISON: 01/04/2023 Limited obstetrical ultrasound FINDINGS: Live castillo intrauterine gestation, fetus in longitudinal lie, vertex presentation with heart rate of 134 bpm. Placenta is maternal left. Amniotic fluid index measures 11.2 cm. (5th percentile KAMALA: 7.5 cm; 95th percentile KAMALA: 24.9 cm). Biparietal diameter 8.64 cm; 34 weeks 6 days Head circumference 31.68 cm; 35 weeks 4 days Abdominal circumference 28.64 cm; 32 weeks 5 days Femur length 6.41 cm; 33 weeks 1 day Composite age by [place] formula would be 34 weeks 1 day +/- 2 weeks 3 days; third trimester estimat es of gestational age and not optimally accurate and should not alter and established gestational fro m unreliable last menstrual period or a first or second trimester ultrasound estimate. Estimated weight is 2159 +/- 324 g Estimated weight -GP: Less than 3% Head circumference/abdominal circumference 1.11, at upper limits of normal range of 0.94, 101.11 Femur length/BPD 74.22, within normal range of 71.0-87.0 Femur length/AC: 22.38, within normal range of 20.00-24.00 Femur length/head circumference: 20.23, within normal range of 19.50-21.87. IMPRESSION: Amniotic fluid index measures 11.22 cm Estimated weight is 2159 +/- 324 g Estimated weight-GP: Less than 3% Reviewed, dictated and finalized at Location A. Reviewed, dictated and finalized at location B.
[2023-03-06 10:58] VITALS: BP 115/70; PULSE 73
[2023-03-06 11:00] VITALS: BP 115/74; PULSE 83
[2023-03-06 11:09] LABS: Basophils Percent Auto 0.5 % (0.2-1.2); Eosinophils Absolute Auto 0.1 K/mm3 (0-0.3); Eosinophils Percent Auto 0.8 % (0-4.4); Hematocrit 33.5 % (37.0-47.0); Hemoglobin 10.6 g/dL (12.0-15.0); Immature Granulocyte Absolute 0.02 K/mm3 (0.00-0.031); Immature Granulocyte Percent A 0.3 % (0-0.5); Lymphocytes Absolute Auto 1.48 K/mm3 (0.9-3.2); Lymphocytes Percent Auto 24.3 % (18.3-44.2); Mean Corpuscular HGB Conc 31.6 g/dl (32-36); Mean Corpuscular Volume 88.6 fl (80-100); Monocytes Absolute Auto 0.5 K/mm3 (0.1-0.6); Monocytes Percent Auto 7.6 % (2.6-8.5); Neutrophils Percent Auto 66.5 % (45.5-73.1); Platelet Count Result 259 k/mm3 (150-375); Red Blood Count 3.78 M/mm3 (4.2-5.4); Red Cell Distribution Width 13.3 % (11.5-14.5); White Blood Count 6.1 K/mm3 (4.5-10.0)
[2023-03-06 11:19] LABS: Alanine Aminotransferase 13 U/L (6-35); Albumin Level 3.8 g/dL (3.5-5.1); Alkaline Phosphatase 131 U/L (38-126); Anion Gap 7 mmol/L (8-16); Aspartate Amino Transferase 20 U/L (14-36); Bilirubin,Total 0.5 mg/dL (0.2-1.3); Blood Urea Nitrogen 6 mg/dL (7-17); Calcium 8.5 mg/dL (8.4-10.2); Carbon Dioxide 23 mmol/L (22-30); Chloride 104 mmol/L (98-107); Estimated Glomerular Filt Rate > 60; Glucose 69 mg/dL (65-110); Potassium 3.3 mmol/L (3.4-5.0); Sodium 134 mmol/L (137-145); Uric Acid 3.7 mg/dL (2.5-7.5)
[2023-03-06 11:31] VITALS: BP 107/75; PULSE 68
[2023-03-06 11:45] VITALS: BP 115/74; PULSE 77; PULSE 80
[2023-03-06 12:44] LABS: Appearance Urine Clear (Clear); Bacteria Urine None Seen /hpf; Bilirubin Urine 1+ (Negative); Blood Urine Negative (Negative); Color Urine Dark Yellow (Yellow); Glucose Urine UA Negative (Negative); Ketones Urine Trace mg/dL (Negative); Leukocyte Esterase Ur 1+ LEU/UL (NEGATIVE); Nitrate Urine Negative (Negative); Non Pathogenic Casts 0-2; Protein Urine 1+ mg/dL (Negative); RBC Urine 0-2 /hpf (0-2); Specific Grav Ur 1.024 (1.001-1.035); Squamous Epithelial Cell Urine Few /hpf (Few); pH Urine 7.5 (5.0-9.0)
[2023-03-06 12:45] LABS: Creatinine Urine 242.6 mg/dL; Total Protein Urine Random 8 mg/dL; Ur Ttl Prot Creatinine Ratio 0.03 mg/mg (0-0.20)
[2023-03-06 12:46] LABS: Add Urine Microscopic? YES
--- NOTE | 2023-03-06 13:11 | PC.NURSE ---
called Dr. Perkins reported BP and lab result. discharge order received with induction reservation
== END 2023-03-06 13:23 | disposition home or self-care (01) ==
LOC: ANHOBOP 10:28 → ANHOBPP 10:29
PROVIDERS: PCP Nurse Practitioner Family; Visit Provider Obstetrics & Gynecology
DX: O13.9 Gestational [pregnancy-induced] hypertension without significant proteinuria, unspecified trimester (principal); Z3A.00 Weeks of gestation of pregnancy not specified
CPT/HCPCS: 36415; 59025; 76816; 80053; 81001; 82570; 84156; 84550; 85025; 87086; 99199

== ENCOUNTER 2023-03-09 06:10 | Inpatient (IN) | payer OTHER, SELFPAY ==
[2023-03-09] VITALS (105 sets, daily range): BP systolic 75–156; BP diastolic 32–130; PULSE 25–201; RESP 16; TEMP 36.2–36.8; O2SAT 75–100; BMI 24.2
--- NOTE | 2023-03-09 06:46 | ADMGEN ---
This patient, Mae López, was admitted to Labor/Delivery/Recovery 105-00. Patient/family oriented to hospital policies and general routines including ID bracelet, bed and alarms, visiting hours, pain management, procedures, bathroom and other care routines, personal items, smoking policy, room service/diet, and visiting hours. Information on how to activate the Rapid Response Team has been discussed. Patient/Family are encouraged to report perceived risks to care and to ask questions if they do not understand what they are told or what they should do.
[2023-03-09] MEDS: OXYTOCIN 30 UNITS/NS 500 ML 30 UNITS/500 ML BAG IV CONT (07:11)
[2023-03-09] MEDS: LACTATED RINGERS 1,000 ML 125 ML IV CONT ×2 (07:12→08:38)
[2023-03-09 07:22] LABS: Basophils Percent Auto 0.6 % (0.2-1.2); Eosinophils Absolute Auto 0.1 K/mm3 (0-0.3); Eosinophils Percent Auto 1.2 % (0-4.4); Hematocrit 28.6 % (37.0-47.0); Hemoglobin 9.4 g/dL (12.0-15.0); Immature Granulocyte Absolute 0.02 K/mm3 (0.00-0.031); Immature Granulocyte Percent A 0.4 % (0-0.5); Lymphocytes Absolute Auto 1.55 K/mm3 (0.9-3.2); Lymphocytes Percent Auto 31.3 % (18.3-44.2); Mean Corpuscular HGB Conc 32.9 g/dl (32-36); Mean Corpuscular Volume 85.1 fl (80-100); Monocytes Absolute Auto 0.4 K/mm3 (0.1-0.6); Monocytes Percent Auto 8.5 % (2.6-8.5); Neutrophils Absolute Auto 2.9 K/mm3 (1.3-6.7); Platelet Count Result 233 k/mm3 (150-375); Red Blood Count 3.36 M/mm3 (4.2-5.4); Red Cell Distribution Width 13.3 % (11.5-14.5)
[2023-03-09] MEDS: PHENYLEPHRINE 1,000 MCG/10 ML SYRINGE 100 MCG IV PUSH (08:45)
[2023-03-09 09:17] LABS: Rapid Plasma Reagin Non-Reactive (NonReactive)
[2023-03-09] MEDS: OXYTOCIN 30 UNITS/NS 500 ML 30 UNITS/500 ML BAG 125 UNITS IV CONT (11:53)
--- NOTE | 2023-03-09 11:55 | WPDHPUPDATE1 ---
History and Physical Update Update Date/Time: 03/09/23 11:55 History and Physical has been reviewed, including an updated exam of the patient. There are NO changes in the patient's condition. Risks, benefits, and alternatives have been discussed and questions answered. Patient agrees to proceed with procedure.
--- NOTE | 2023-03-09 11:56 | PM.OBPRVD ---
OB - Delivery Note Procedure Events: Intrauterine Growth Restriction (IUGR) Induction method: Per Pitocin Protocol Delivery augmentation: Rupture of Membranes Delivery monitor: External FHT and External Uterine Route of delivery: Episiotomy description: None Laceration Description: None Specimen: Yes Quantitative Blood Loss (ml): 300 Anesthesia type: Spinal Disposition: Floor Complications: None Narrative: patient prepped draped usual manner for this procedure. Maternal expulsive efforts readily delivered vertex over intact perineum. Nuchal cord was noted and reduced. Rest of baby delivered without difficulty cord clamped cut and placenta did deliver spontaneously. Cervix vagina vulva were inspected with no lacerations or tears. Uterus was well contracted. Procedure at this point was considered terminated. Baby Weeks of gestation at delivery: 37 Infant gender: Female Weight (pounds): 5 Weight (ounces): 6 presentation: vertex position: Right Occiput Anterior Placenta delivery description: Spontaneous Cord Vessel Description: 3 Vessels, Nuchal Cord and Reduced score one minute: 8 score five minutes: 9 AMG Delivery Billing Delivery Delivery: Delivery Charge
[2023-03-09] MEDS: BENZOCAINE 20% AER SPR (*SP) 56 GM CAN 1 SPRAY (14:10)
[2023-03-09] MEDS: WITCH HAZEL 40 PADS 1 PAD (14:10)
--- NOTE | 2023-03-09 14:53 | OBPPTRN ---
Patient transferred to post room # 284 via wheelchair. Support person present. Oriented to unit, room, information board, rooming in, admission packet and security measures. Patient verbalizes understanding.
[2023-03-09] MEDS: IBUPROFEN 600 MG TABLET PO (15:23)
[2023-03-09] MEDS: DOCUSATE SODIUM 100 MG CAPSULE PO (15:35)
[2023-03-09] MEDS: POLYSACCHARIDE IRON COMPLEX 150 MG CAPSULE PO (15:36)
[2023-03-10] MEDS: ACETAMINOPHEN 325 MG TABLET 650 MG PO ×2 (05:15→16:54)
[2023-03-10 05:34] LABS: Hematocrit 26.1 % (37.0-47.0); Hemoglobin 8.5 g/dL (12.0-15.0)
[2023-03-10 07:30] VITALS: BP 109/72; PULSE 56; RESP 16; TEMP 37; O2SAT 98
--- NOTE | 2023-03-10 07:42 | PM.OBDSVD ---
DS: Admitting Diagnosis Discharge Date 03/10/2023 Admitting Diagnosis DS: Discharge Diagnosis Discharge Diagnosis (1) , delivered: Code(s): O80 - Encounter for full-term uncomplicated delivery Status: Acute OB - DS: Summary OB Procedures : None OB Procedures Intrapartum: Spontaneous Vag Delivery OB Procedures: : None Time Spent with Patient Time attestation: Total time spent providing and/or coordinating discharge services: DS: Data Data Completed and Pending Pending studies at discharge: Pending at discharge 03/09/23 11:23 Surgical [PTH] Routine Labs on day of discharge: Labs from last 24 hours 03/10/23 03/09/23 05:11 06:59 Hgb 8.5 L Hct 26.1 L RPR Non-reactive Blood Type A Positive Antibody Screen Negative Discharge Plan Discharge Discharging Clinician: Toby Perkins Patient Disposition: Home, Self-Care Activity: pelvic rest Diet: as tolerated Patient Instructions: Antibiotic Form, How to Stop Smoking (DC), Cigarette Smoking and Your Health (GEN), Electronic Cigarettes and Your Health (GEN) Stand Alone Forms: General Discharge Information Follow-up/Referrals: Toby Perkins MD [Physician] - 3 Weeks Discharge Medications: New polysaccharide iron complex 150 mg iron Capsule 150 mg PO BIDWM Qty: 90 1RF ibuprofen 600 mg Tablet 600 mg PO Q6H PRN (Reason: Cramping) Qty: 30 0RF Discontinued ferrous sulfate 325 mg (65 mg iron) capsule, extended release PO Date of admission: 03/09/23 06:10 Primary Care Provider: Shoshana Kaufman Admitting Provider: Toby Perkins Attending physician on admission: Toby Perkins Condition: Stable
[2023-03-10] MEDS: DOCUSATE SODIUM 100 MG CAPSULE PO (08:06)
[2023-03-10] MEDS: POLYSACCHARIDE IRON COMPLEX 150 MG CAPSULE PO ×2 (08:06→16:53)
[2023-03-10] MEDS: WITCH HAZEL 40 PADS 1 PAD TOPICAL (08:06)
--- NOTE | 2023-03-10 12:04 | PC.NURSE ---
[id number] Introductions were made, then consulted with patient to assess needs related to . Mother verbalizes she is able to independently latch infant with appropriate positioning/alignment. She denies any nipple discomfort and is responsively . Infant is currently meeting outcomes for weight, output, jaundice and feeding frequencies of 8-12 times in 24 hours. Mother declines any additional assistance/education at this time. Mother is encouraged to call for assistance if her doesn?t latch or there is discomfort with latching. Mother voiced understanding of information shared and the mom reminded of the mom/baby guide for an additional resource. Reported to the primary RN.
--- NOTE | 2023-03-10 12:25 | WPDANLDPN2 ---
Anes-Prog Note L&D Date/Time: 03/10/23 12:25 Neuro status: Neuro function grossly intact. Cardiovascular status: normal Respiratory status: normal Airway patency: baseline Mental status: baseline Post-Op hydration status: normal Vital Signs: Last Vital Signs Temp 37.0 C 03/10/23 07:30 Pulse 56 L 03/10/23 07:30 Resp 16 03/10/23 07:30 BP 109/72 03/10/23 07:30 Pulse Ox 98 03/10/23 07:30 O2 Del Method Room Air 03/09/23 06:34 Pain score (VAS): 0 Post-procedural complaints: none Patient feedback: Patient satisfied with anesthetic care.
--- NOTE | 2023-03-10 12:26 | WPDANLDNPN2 ---
Anes-Prog Note L&D-Neuraxial Date/Time: 03/10/23 12:26 Patient feedback: Patient satisfied with post-operative pain management.
--- NOTE | 2023-03-10 12:26 | WPDANLDPN2 ---
Anes-Prog Note L&D Date/Time: 03/10/23 12:26 Neuro status: Neuro function grossly intact. Cardiovascular status: normal Respiratory status: normal Airway patency: baseline Mental status: baseline Post-Op hydration status: normal Vital Signs: Last Vital Signs Temp 37.0 C 03/10/23 07:30 Pulse 56 L 03/10/23 07:30 Resp 16 03/10/23 07:30 BP 109/72 03/10/23 07:30 Pulse Ox 98 03/10/23 07:30 O2 Del Method Room Air 03/09/23 06:34 Pain score (VAS): 0 Post-procedural complaints: none Patient feedback: Patient satisfied with anesthetic care.
[2023-03-10 19:00] VITALS: BP 109/71; PULSE 83; RESP 16; TEMP 36.6
[2023-03-11 07:20] VITALS: BP 109/60; PULSE 57; RESP 16; TEMP 36.7; O2SAT 100
[2023-03-11] MEDS: MULTIVIT/MIN/PREN/FOL AC/IRON TABLET 1 TAB PO (07:27)
[2023-03-11] MEDS: POLYSACCHARIDE IRON COMPLEX 150 MG CAPSULE PO (07:27)
[2023-03-11] MEDS: MEASLES,MUMPS,RUBELLA VACCINE 0.5 ML VIAL SUB-Q (11:10)
--- NOTE | 2023-03-11 12:12 | PM.OBPNVD ---
OB - PN: Subj Subjective Date/time seen: 03/11/23 12:12 Patient comments: no complaints baby status: doing well OB - PN: Obj Data Labs 03/10/23 05:11 OB - PN A/P Assessment and Plan (1) , delivered: Code(s): O80 - Encounter for full-term uncomplicated delivery Status: Acute Assessment and Plan: Doing well. Discharged home. Time Spent With Patient Time: Total time spent is greater than 50% in coordination of care (as documented) at patient's floor/unit and/or counseling patient: Exam Const: General: comfortable GI: Other: Fundus nontender firm -3 umbilicus Extrem: General: normal to inspection and no calf tenderness
[2023-03-13 10:35] VITALS: BP 113/79; PULSE 82; RESP 18; TEMP 37.3; O2SAT 100
== END 2023-03-11 12:20 | disposition home or self-care (01) | DRG 560 ==
LOC: ANHLDR 06:19 → ANHOB2 15:12
PROVIDERS: Admitting Provider Obstetrics & Gynecology; PCP Nurse Practitioner Family; Visit Provider Obstetrics & Gynecology
DX: O36.5930 Maternal care for other known or suspected poor fetal growth, third trimester, not applicable or unspecified (principal); Z37.0 Single live birth; O62.3 Precipitate labor; Z3A.37 37 weeks gestation of pregnancy; O69.81X0 Labor and delivery complicated by cord around neck, without compression, not applicable or unspecified
CPT/HCPCS: 36415; 85014; 85018; 85025; 86592; 86850; 86900; 86901; 88307; 90710; A9270; J2371; J2590; J2795; J7120

== ENCOUNTER 2023-07-20 13:44 | Outpatient (CLI) | payer OTHER, SELFPAY ==
--- NOTE | ~2023-07-20 | US_ITS ---
Pelvic ultrasound. Clinical History: Irregular menses Technique: Realtime transabdominal and transvaginal scanning of the pelvis was performed. Color flow Doppler and Doppler spectral analysis were performed. Findings: The uterus is retroverted. The endometrial stripe has a thickness of 8 mm. No focal mass is identified. The right ovary measures 2.7 x 1.9 x 1.8 cm. No significant right ovarian or adnexal mass is seen. The left ovary measures 2.3 x 1.9 x 3.2 cm. No significant left ovarian or adnexal mass is seen. Vascular flow present in both ovaries on color Doppler imaging. There is no evidence of free fluid in the cul de sac. Impression: Unremarkable pelvic ultrasound. Reviewed, dictated and finalized at [facility]. OM [employer] Impression: Unremarkable pelvic ultrasound.
== END 2023-07-20 13:45 | disposition home or self-care (01) ==
LOC: CHSIMG 13:45
PROVIDERS: PCP Family Medicine; Visit Provider Obstetrics & Gynecology
DX: N92.6 Irregular menstruation, unspecified (principal)
CPT/HCPCS: 76830; 76856

== ENCOUNTER 2023-11-11 13:08 | Emergency (ER) | payer OTHER, SELFPAY ==
[2023-11-11 13:12] VITALS: BP 156/95; PULSE 58; RESP 20; TEMP 36.9; O2SAT 98
[2023-11-11 13:27] LABS: Bilirubin Urine 1+ (Negative); Blood Urine 3+ (Negative); Color Urine Yellow (Yellow); Glucose Urine UA Negative (Negative); Ketones Urine 1+ (Negative); Leukocyte Esterase Ur 2+ LEU/UL (Negative); Nitrate Urine Negative (Negative); Protein Urine 3+ (Negative); Specific Grav Ur 1.025 (1.010-1.020)
--- NOTE | 2023-11-11 13:30 | ED.FEMALEGU ---
HPI - Female Genitourinary General Chief complaint: Urogenital-Female Stated complaint: UTI symptoms Source: patient Mode of arrival: ambulatory Limitations: no limitations History of Present Illness HPI Narrative: is a 23-year-old female who presents with frequent urination with some lower suprapubic tenderness with no nausea vomiting no fever chills no diarrhea constipation no hematuria no chest pain or shortness of breath. MD elicited complaint: dysuria and back pain Related Data Allergies Allergy/AdvReac Type Severity Reaction Status Date / Time ceftriaxone [From Rocephin] Allergy Unknown Verified 11/11/23 13:31 montelukast [From Singulair] Allergy Unknown Verified 11/11/23 13:31 Review of Systems Review of Systems: All systems reviewed & are unremarkable except as noted in HPI and below PMFSH Past Medical History Medical History Anxiety Depression Encounter for IUD insertion 03/23/19 Mirena insertion Encounter for IUD removal 03/25/20 Mirena removal Pelvic pressure in female Vaginal delivery 08/23/17 Dariusz no complications 01/16/21 Keyshawn no complications Surgical History Surgical History No significant past surgical history Family History Family History Mother No problems noted. Father Diabetes mellitus Social History Social History Smoking status: Light tobacco smoker Tobacco type: e-cigarettes/vaping Second hand tobacco smoke exposure: Yes Additional smoking assessment comments: smokes at times Alcohol intake: current Alcohol use details: has alcohol at times Substance use: never Substance use type: marijuana Other substance usage details: patient denies Last use: uses for nausea Lack of Transportation: No Lack of Food: Never True Current Housing: I Have Housing Concerned About Future Housing: No Difficulty Paying Gas/Electric Bills: No Difficulty Paying for Meds: No Currently Unemployed: No Education: High School Diploma/GED Difficulty w/ Childcare or Family Care: No Living arrangements: other Additional living arrangements comments: boyfriend and children Occupation/Education: occupation Gender identity (if verbalized by the patient): Female Sexual Orientation (if Verbalized by the Patient): Straight or Heterosexual Spiritual care concerns: No Exam Const: General: healthy appearing Nutritional Appearance: well nourished Orientation/consciousness: patient oriented x3 Limitations: no limitations Chest: Chest palpation & inspection: normal inspection of the chest Resp: Effort & Inspection: normal respiratory effort Auscultation: clear to auscultation bilaterally Cardio: Rate: regular rate Rhythm: regular rhythm GI: GI Palp: Yes Soft to palpation and Yes Tenderness to palpation present (GI) : General: Yes Bladder palpation abnormal ( Suprapubic tenderness with palpation) Urinary Catheter: Urinary Catheter: patent and draining and urine cloudy Back/Spine/Pelvis: Back: no CVA tenderness Skin: General skin exam: normal color Course Course Emergency Course: urinalysis performed and reviewed with patient Vital Signs Vital signs: Vital Signs Temperature 36.9 C 11/11/23 13:12 Pulse Rate 58 L 11/11/23 13:12 Respiratory Rate 20 11/11/23 13:12 Blood Pressure 156/95 H 11/11/23 13:12 Pulse Oximetry 98 11/11/23 13:12 Oxygen Delivery Room Air 11/11/23 13:12 Temperature 36.9 C 11/11/23 13:12 Pulse Rate 58 L 11/11/23 13:12 Respiratory Rate 20 11/11/23 13:12 Blood Pressure 156/95 H 11/11/23 13:12 Pulse Oximetry 98 11/11/23 13:12 Oxygen Delivery Room Air 11/11/23 13:12 MDM - Female Genitourinary Lab Data Labs: Lab Results 11/11/23 R
[2023-11-11 13:35] LABS: Add Urine Microscopic? YES; Appearance Urine Cloudy (Clear); RBC Urine 21-50 /hpf (0-2)
[2023-11-11 13:36] LABS: Bacteria Urine 2+ /hpf; Mucus Urine Heavy /lpf; Squamous Epithelial Cell Urine Occasional /hpf (Few); WBC Clumps Urine Present /hpf
--- NOTE | 2023-11-14 12:25 | PC.NURSE ---
final urine report reviewed. >100,000 staph saprophyticus isolated. report shows sensitivity to macrobid. pt discharged with rx for macrobid. no change in plan of care.
== END 2023-11-11 13:59 | disposition home or self-care (01) ==
PROVIDERS: Emergency Provider Emergency Medicine; PCP Family Medicine
DX: N39.0 Urinary tract infection, site not specified (principal); F17.290 Nicotine dependence, other tobacco product, uncomplicated
CPT/HCPCS: 81001; 87077; 87086; 87088; 99283